=== PATIENT | male | born 1965 | race Caucasian/White ===

== ENCOUNTER 2023-11-03 13:48 | Outpatient (CLI) | payer OTHER, SELFPAY | END 2023-11-03 13:49 | disposition home or self-care (01) | LOC: INJ CL 13:52 | PROVIDERS: PCP Family Medicine; Visit Provider Family Medicine | DX: M54.16 Radiculopathy, lumbar region (principal); M51.26 Other intervertebral disc displacement, lumbar region | CPT/HCPCS: 64483; J1100; Q9966 ==

== ENCOUNTER 2024-01-23 08:11 | Outpatient (CLI) | payer OTHER, SELFPAY | END 2024-01-23 08:12 | disposition home or self-care (01) | LOC: INJ CL 08:11 | PROVIDERS: PCP Family Medicine; Visit Provider Family Medicine | DX: M54.16 Radiculopathy, lumbar region (principal) | CPT/HCPCS: 64483; A9270; J1100; Q9966 ==